=== PATIENT | male | born 1945 | race Caucasian/White ===

== ENCOUNTER → 2023-04-15 07:29 | Outpatient (REF) | payer MEDICARE, OTHER, SELFPAY ==
[2023-04-15 09:35] LABS: Blood Urea Nitrogen 17 mg/dl (9-20); Calcium 9.2 mg/dl (8.4-10.2); Carbon Dioxide 26 mmol/L (22-30); Chloride 105 mmol/L (98-107); Glucose 92 mg/dl (70-99); Potassium 4.3 mmol/L (3.5-5.1); Sodium 138 mmol/L (135-145); eGFR > 60.00
== END ==
LOC: REG 07:29
PROVIDERS: ATTENDING PHYSICIAN Thoracic Surgery (Cardiothoracic Vascular Surgery); FAMILY PHYSICIAN Family Medicine
DX: I71.21 Aneurysm of the ascending aorta, without rupture (principal)
CPT/HCPCS: 36415; 80048

== ENCOUNTER → 2023-05-03 08:32 | Outpatient (REF) | payer MEDICARE, OTHER, SELFPAY | LOC: HWRAD 08:32 | PROVIDERS: ATTENDING PHYSICIAN Thoracic Surgery (Cardiothoracic Vascular Surgery); FAMILY PHYSICIAN Family Medicine | DX: I71.21 Aneurysm of the ascending aorta, without rupture (principal) | CPT/HCPCS: 71275; 74174; Q9967 ==

== ENCOUNTER → 2023-08-17 11:39 | Outpatient (REF) | payer MEDICARE, OTHER, SELFPAY ==
[2023-08-17 14:46] LABS: Blood Urea Nitrogen 15 mg/dl (9-20); Calcium 9.5 mg/dl (8.4-10.2); Carbon Dioxide 27 mmol/L (22-30); Chloride 105 mmol/L (98-107); Glucose 91 mg/dl (70-99); Potassium 4.8 mmol/L (3.5-5.1); Sodium 140 mmol/L (135-145); eGFR > 60.00
[2023-08-17 15:14] LABS: PSA, Total - Diagnostic 2.59 ng/ml (0.0-4.0)
== END ==
LOC: REG 11:39
PROVIDERS: ATTENDING PHYSICIAN Thoracic Surgery (Cardiothoracic Vascular Surgery); FAMILY PHYSICIAN Family Medicine; REFERRING PHYSICIAN Specialist
DX: Z01.818 Encounter for other preprocedural examination (principal); I71.21 Aneurysm of the ascending aorta, without rupture; R97.20 Elevated prostate specific antigen [PSA]
CPT/HCPCS: 36415; 80048; 84153

== ENCOUNTER → 2023-09-27 08:28 | Outpatient (REF) | payer MEDICARE, OTHER, SELFPAY | LOC: RAD 08:28 | PROVIDERS: ATTENDING PHYSICIAN Thoracic Surgery (Cardiothoracic Vascular Surgery); FAMILY PHYSICIAN Family Medicine | DX: Z01.818 Encounter for other preprocedural examination (principal); I71.21 Aneurysm of the ascending aorta, without rupture | CPT/HCPCS: 71275; Q9967 ==

== ENCOUNTER 2024-05-14 04:00 | Emergency (ER) | payer MEDICARE, OTHER, SELFPAY ==
[2024-05-14] VITALS (14 sets, daily range): BP systolic 107–153; BP diastolic 62–82; PULSE 46–47; BMI 32.8
[2024-05-14 04:52] LABS: % Basophils 0.9 % (0-2); % Eosinophils 3.1 % (0-6); % Immature Granulocytes 0.5 % (0-0.5); % Lymphocytes 38.6 % (20.5-51.1); % Monocytes 10.3 % (1.7-9.3); % Neutrophils 46.6 % (42.2-75.2); Absolute Basophils 0.1 10^3/uL (0-0.2); Absolute Eosinophils 0.2 10^3/uL (0-0.7); Absolute Lymphocytes 2.5 10^3/uL (1.2-3.4); Absolute Monocytes 0.7 10^3/uL (0.1-0.6); Absolute Neutrophils 3.1 10^3/uL (1.4-6.5); Hematocrit 41.8 % (39.0-52.0); Hemoglobin 14.6 g/dL (13.0-18.0); Mean Corp Hgb Conc. 34.9 g/dL (33.0-37.0); Mean Corpuscular Hgb 31.2 pg (27.0-31.0); Mean Corpuscular Volume 89.3 fL (80.0-94.0); Mean Platelet Volume 12.3 fL (7.4-10.4); Nucleated Red Blood Cells % 0 % (-); Platelet Count 124 10^3/uL (130-400); Red Blood Cell Count 4.68 10^6/uL (4.70-6.10); Red Cell Dist. Width 13.4 % (11.5-14.5); White Blood Cell Count 6.5 10^3/uL (4.8-10.8)
[2024-05-14 05:11] LABS: ALT (SGPT) 48 U/L (0-50); AST (SGOT) 38 U/L (17-59); Albumin 4.5 g/dl (3.5-5.0); Alkaline Phosphatase 65 U/L (38-126); Blood Urea Nitrogen 14 mg/dl (9-20); Calcium 9.7 mg/dl (8.4-10.2); Carbon Dioxide 25 mmol/L (22-30); Chloride 105 mmol/L (98-107); Estimated Creatinine Clearance 81 ml/min; Glucose 95 mg/dl (70-99); Potassium 4.2 mmol/L (3.5-5.1); Sodium 139 mmol/L (135-145); Total Bilirubin 1.7 mg/dl (0.2-1.3); Total Protein 6.9 g/dl (6.3-8.2); eGFR > 60.00
[2024-05-14 08:07] LABS: Urine Albumin Negative (Neg - Trace); Urine Bilirubin Negative (Negative); Urine Character Clear (Clear); Urine Color Yellow; Urine Glucose Negative (Negative); Urine Ketone Negative (Negative); Urine Leukocyte Negative (Negative); Urine Nitrite Negative (Negative); Urine Occult Blood Negative (Negative); Urine Specific Gravity 1.005 (<1.030); Urine Urobilinogen Negative (Neg - 1+)
--- NOTE | 2024-05-14 09:46 | ED.GENMED ---
History of Present Illness
General
Chief Complaint: Fainting Sensation
Source: patient and spouse
Time Seen by Provider: 05/14/24 06:12
History of Present Illness
History of Present Illness:
79-year-old male with a history of a ascending aortic aneurysm, hyperlipidemia, BPH who presents with lightheadedness. Patient states he woke up several times to urinate last night which is a little bit atypical for him. Patient states that after
he woke up the second time start noticing he did feel quite normal. He states he felt lightheaded and almost like he was going to pass out. He in bed on my exam states he feels a little better but still just a little bit lightheaded. Admits that
he is on metoprolol twice a day. Patient states that he is followed by cardiothoracic surgery for his aneurysm. He has had no fevers. Has had no dysuria. No back pain. No abdominal pain. No chest pain. No shortness of breath
Past History
Past History
ED Past Medical History: Hypercholesterolemia and Other (Diverticulitis, ascending aortic aneurysm)
ED Past Surgical History: None
Social History
Tobacco: Non-smoker
Alcohol: None
Drug: None
Living: with family
Employment: Employed
Phy Exam
Physical Exam
Physical Exam:
CONSTITUTIONAL Patient alert and oriented to person, place and time. Well-appearing. Vital signs reviewed.
HEAD atraumatic, normocephalic.
EYES eyelids normal to inspection, Extraocular muscles intact, Conjunctiva normal, Sclera normal.
NECK normal range of motion, Trachea midline, no jugular venous distention.
RESPIRATORY CHEST No respiratory distress noted, Chest expansion equal, Bilateral breath sounds clear.
CARDIOVASCULAR regular and bradycardic, Heart sounds normal.
ABDOMEN abdomen nontender, Bowel sounds normal. No distention.
BACK normal inspection, no obvious deformities
UPPER EXTREMITY range of motion normal, Motor strength normal, no cyanosis, no edema.
LOWER EXTREMITY range of motion normal, Motor strength normal, no cyanosis, no edema.
NEURO Speech normal, No focal motor deficits, Wendy coma scale 15, Memory normal, Cranial Nerves intact to screening exam.
SKIN skin warm, dry, and normal in color.
Course
Orders/Labs/Results
Orders:
Orders
05/14/24 04:09
ECG [Electrocardiogram (*1)] Urgent
Reason for Study: Other
Other Reason for Exam: FAINTING SENSATION
05/14/24 04:10
EKG- Treatment ONCE
05/14/24 04:44
Complete Blood Count/With Diff Urgent
05/14/24 04:45
CMP [Comprehensive Metabolic Panel] Urgent
05/14/24 07:32
Orthostatic VS- Treatment ONCE
05/14/24 07:59
Urinalysis Reflex To Culture Urgent
Date Specimen was Collected: 05/14/24
Time Specimen was Collected: 07:57
05/14/24 08:07
CT Chest Angio W/wo Iv Contras Urgent
Comment:
Reason For Exam: cp, h/o aneurysm
05/14/24 10:22
Troponin I Urgent
Abnormal Lab Results
05/14/24 05/14/24
04:44 04:45
RBC 4.68 L 10^6/uL
(4.70-6.10)
MCH 31.2 H pg
(27.0-31.0)
Plt Count 124 L 10^3/uL
(130-400)
MPV 12.3 H fL
(7.4-10.4)
Absolute Monos (auto) 0.7 H 10^3/uL
(0.1-0.6)
Monocytes % 10.3 H %
(1.7-9.3)
Total Bilirubin 1.7 H mg/dl
(0.2-1.3)
05/14/24 04:44
05/14/24 04:45
Vital Signs
Initial and Last Documented VS:
Initial Vital Signs
Temp Pulse Resp BP Pulse Ox
97.8 F 50 22 112/82 98
05/14/24 04:05 05/14/24 04:05 05/14/24 04:05 05/14/24 04:05 05/14/24 04:05
Last Documented Vital Signs
Temp Pulse Resp BP Pulse Ox
97.8 F 43 17 121/65 92
05/14/24 04:05 05/14/24 07:00 05/14/24 07:00 05/14/24 07:00 05/14/24 07:00
MDM/Problems Addressed
MDM/Problems Addressed:
Sinus bradycardia, beta-chelsea use, stable ascending aortic aneurysm
*Pulse Oximetry
Patient hypoxic: no
*EKG
Interpreted by ED Provider?: Yes
Interpretation: abnormal
Rate: bradycardiac
Rhythm: sinus
[place]: left axis deviation
QRS Pattern: right bundle branch block
Ischemia: other (Bifascicular block with left anterior fascicular back and right bundle branch block noted.)
*Enameler Interpretation
Rate: bradycardiac
Interpretation: abnormal
Rhythm: sinus
*Critical Care Note
Total Time (30-74mins, 75-104mins- exclusive of procedures): 30 minutes
Data Reviewed
Review of Other/Old Records Reveals: Testing (echo reviewed from 03/23, EF 54%) and Other (prior EKG from 2016 shows same bifasicular block)
Source: patient and spouse
Patient Management
Escalation/DeEscalation of care consider admission/obs:
Considered admission to the hospital due to bradycardia. However case was discussed with Dr. Barone from cardiology. He recommends decreasing the dose of metoprolol to 25 mg. I do think this is reasonable. Patient had no chest pain but await
troponin. Anticipate discharge
ED Attending Note
-
Portions of this chart may have been created with voice recognition software.� Occasional wrong word or��sound alike� substitutions may have occurred due to the inherent limitations of voice recognition software.
Discharge Plan
Departure
Patient Disposition: Home (Routine Discharge)
Date of Disposition: 05/14/24
Time of Disposition: 11:27
Patient with high blood pressure during this ER visit?: No
Discharge Problem:
Near syncope, Symptomatic bradycardia
Instructions: Near Fainting (DC)
Prescriptions:
No Action
multivitamin 1 EACH tablet
1 ea PO DAILY
valacyclovir [Valtrex] 1,000 MG tablet
1,000 mg PO TID Qty: 29 0RF
prednisone 50 MG tablet
100 mg PO DAILY Qty: 8 0RF
Rx Instructions:
100mg PO daily x 4 days
metoprolol tartrate
50 mg PO BID
Referrals:
Chaitanya Brito MD [Family Provider] -
Activity Restrictions/Additional Instructions:
Please decrease your dose of metoprolol to 25 mg. Please see cardiology in the next 3 to 5 days for reassessment and repeat vital signs. Return immediately for chest pain, shortness of breath, weakness, passing out episode or any other concerns.
Please drink plenty fluids and also be sure to take your time while changing positions from laying or sitting to standing.
Interventions
Interventions:
*Risk Screen - Suicide Last Done: 05/14/24 04:05
*General Assessment Last Done: 05/14/24 04:31
*Neglect/Abuse Screening Last Done: 05/14/24 04:05
*ED- Fall Risk Assessment Last Done: 05/14/24 04:30
*ED COVID-19 Vaccine History Last Done: 05/14/24 06:06
IK-Kafzus-Mtfeqlbput Assessment Last Done: 05/14/24 04:33
ED- Cardiac Assessment Last Done: 05/14/24 04:26
ED- Neurological Assessment Last Done: 05/14/24 04:27
Discharge Date and Time
Print Language: MOHAWK
[2024-05-14 11:15] LABS: Troponin I < 0.012 ng/ml
== END 2024-05-14 11:30 | disposition home or self-care (01) ==
LOC: EMR 04:00
PROVIDERS: Emergency Medicine; EMERGENCY PHYSICIAN Emergency Medicine; FAMILY PHYSICIAN Family Medicine
DX: R55 Syncope and collapse (principal); R00.1 Bradycardia, unspecified; R35.0 Frequency of micturition; I45.2 Bifascicular block; I71.21 Aneurysm of the ascending aorta, without rupture; K57.92 Diverticulitis of intestine, part unspecified, without perforation or abscess without bleeding; E78.00 Pure hypercholesterolemia, unspecified; N40.0 Benign prostatic hyperplasia without lower urinary tract symptoms; Z79.899 Other long term (current) drug therapy
CPT/HCPCS: 99291; 71275; 80053; 81003; 84484; 85025; 93005; Q9967

== ENCOUNTER → 2024-06-06 11:06 | Outpatient (REF) | payer MEDICARE, OTHER, SELFPAY | LOC: HWRCS 11:06 | PROVIDERS: ATTENDING PHYSICIAN Physician Assistant; FAMILY PHYSICIAN Family Medicine | DX: I71.9 Aortic aneurysm of unspecified site, without rupture (principal); R06.02 Shortness of breath; I35.1 Nonrheumatic aortic (valve) insufficiency | CPT/HCPCS: 93306 ==

== ENCOUNTER 2024-06-07 06:24 | Day surgery (SDC) | payer MEDICARE, OTHER, SELFPAY | END 2024-06-07 12:09 | disposition home or self-care (01) | LOC: GI 06:24 | PROVIDERS: ATTENDING PHYSICIAN Internal Medicine Gastroenterology | DX: K22.2 Esophageal obstruction (principal); K44.9 Diaphragmatic hernia without obstruction or gangrene; R13.10 Dysphagia, unspecified | CPT/HCPCS: 43249 ==

== ENCOUNTER → 2024-07-26 08:15 | Outpatient (REF) | payer MEDICARE, OTHER, SELFPAY | LOC: RCS 08:15 | PROVIDERS: ATTENDING PHYSICIAN Internal Medicine Cardiovascular Disease; FAMILY PHYSICIAN Family Medicine | DX: R06.02 Shortness of breath (principal) | CPT/HCPCS: 78452; 93017; A9500 ==

== ENCOUNTER → 2024-08-02 09:53 | Outpatient (REF) | payer MEDICARE, OTHER, SELFPAY ==
[2024-08-02 12:14] LABS: PSA, Total - Diagnostic 2.82 ng/ml (0.0-4.0)
== END ==
LOC: REG 09:53
PROVIDERS: ATTENDING PHYSICIAN Specialist; FAMILY PHYSICIAN Family Medicine
DX: R97.20 Elevated prostate specific antigen [PSA] (principal)
CPT/HCPCS: 36415; 84153

== ENCOUNTER → 2024-09-08 07:55 | Outpatient (REF) | payer MEDICARE, OTHER, SELFPAY ==
[2024-09-08 10:00] LABS: Blood Urea Nitrogen 19 mg/dl (9-20); Calcium 9.5 mg/dl (8.4-10.2); Carbon Dioxide 25 mmol/L (22-30); Chloride 109 mmol/L (98-107); Glucose 100 mg/dl (70-99); Potassium 5.4 mmol/L (3.5-5.1); Sodium 139 mmol/L (135-145); eGFR > 60.00
== END ==
LOC: REG 07:55
PROVIDERS: ATTENDING PHYSICIAN Thoracic Surgery (Cardiothoracic Vascular Surgery); FAMILY PHYSICIAN Family Medicine
DX: I71.21 Aneurysm of the ascending aorta, without rupture (principal); Z01.818 Encounter for other preprocedural examination
CPT/HCPCS: 36415; 80048

== ENCOUNTER → 2024-10-02 07:33 | Outpatient (REF) | payer MEDICARE, OTHER, SELFPAY | LOC: RAD 07:33 | PROVIDERS: ATTENDING PHYSICIAN Thoracic Surgery (Cardiothoracic Vascular Surgery); FAMILY PHYSICIAN Family Medicine | DX: I71.21 Aneurysm of the ascending aorta, without rupture (principal) | CPT/HCPCS: 71275; Q9967 ==

== ENCOUNTER 2025-01-15 14:11 | Observation (INO) | payer MEDICARE, OTHER, SELFPAY ==
[2025-01-15] VITALS (15 sets, daily range): BP systolic 95–161; BP diastolic 53–89; BMI 31.1; BMI 31.8
--- NOTE | 2025-01-15 07:55 | ED.GENMED ---
History of Present Illness
<Paulo Vega MD, Resident - Last Filed: 01/15/25 10:13>
General
Chief Complaint: Abdominal Pain
Source: patient
Exam Limitations: none
Time Seen by Provider: 01/15/25 07:38
Nursing documentation reviewed up to this point in time: agreed with
History of Present Illness
History of Present Illness:
Patient is a 80-year-old male, with past medical history of ascending aortic aneurysm, BPH, hyperlipidemia, diverticulosis, hiatal hernia presented to the ED through EMS services with complaint of abdominal discomfort. He stated that his symptoms
started around 3 AM this morning. He felt severe pain in his lower abdomen and had to palma to the bathroom immediately. He had a large bowel movement followed by diarrhea and was able to sleep after that. He woke up 2 hours later feeling sick to
his stomach, he tried to get up and get some juice but he felt lightheaded, nauseous and near syncope.
He called EMS services immediately and was brought to the ER. In the ER he was hypotensive, and had generalized abdominal tenderness with abdominal guarding. He was moaning in pain.
He was started on IV fluids and was immediately sent for CT chest abdomen and pelvis. Blood work was ordered.
As per last CT chest, his ascending aortic aneurysm was 4.7 cm in size in September 2024.Increased to 4.9cm this admission.No signs of dissection/rupture
No signa of Bowel perforation on CT chest/abdomen/pelvis
Past History
<Paulo Vega MD, Resident - Last Filed: 01/15/25 10:13>
Past History
ED Past Medical History: Hypercholesterolemia and Other (Diverticulitis, ascending aortic aneurysm)
ED Past Surgical History: None
Social History
Tobacco: Non-smoker
Alcohol: None
Drug: None
Living: with family
Employment: Employed
Review of Systems
<Paulo Vega MD, Resident - Last Filed: 01/15/25 10:13>
Review of Systems
Constitutional: Reports chills
Respiratory: Reports no symptoms
ABD/GI: Reports abdominal pain and nausea
: Reports no symptoms
Musculoskeletal: Reports no symptoms
Skin: Reports no symptoms
Neurological: Reports weakness
Endocrine: Reports no symptoms
Psychiatric: Reports no symptoms
Phy Exam
<Paulo Vega MD, Resident - Last Filed: 01/15/25 10:13>
Physical Exam
Physical Exam:
On general physical examination patient appears very sick and in visible distress due to abdominal pain
Abdomen-generalized abdominal tenderness, guarding, bowel sounds audible
Lungs-bilaterally clear to auscultation
CVS-S1-S2 normal, no murmurs
Peripheral pulses 2+
No pedal edema
Gastrointestinal Exam
Gastrointestinal Exam: normal bowel sounds, guarding and tender (Generalized tenderness)
Course
<Paulo Vega MD, Resident - Last Filed: 01/15/25 10:13>
Orders/Labs/Results
Orders:
Orders
01/15/25 07:37
EKG [Electrocardiogram (*1)] Urgent
Reason for Study: Abdominal Pain
01/15/25 07:38
EKG- Treatment ONCE
01/15/25 07:49
Cardiac Monitoring- Treatment ONCE
IV Insert/Care/Rem.- Treatment PRN
IV Insert/Care/Rem.- Treatment PRN
0.9% Sodium Chloride 250 ml [Nss] 250 ml IV BOLUS
Pulse Ox/cont/shift [RESP] Stat
Quantity: 1
01/15/25 07:54
Complete Blood Count/With Diff Urgent
Comprehensive Metabolic Panel Urgent
Lipase Urgent
Troponin I Urgent
01/15/25 08:03
CT Chest/abd/pelvis Angio W/wo Stat
Comment:
Reason For Exam: Severe sudden abdominal pain. Known aneurysm
01/15/25 08:05
HYDROmorphone [Dilaudid] 0.5 mg IV NOW ONE
01/15/25 08:06
Ondansetron Injectable [Zofran] 4 mg IV NOW ONE
01/15/25 09:04
Urinalysis Reflex To Culture Urgent
Date Specimen was Collected: 01/15/25
Time Specimen was Collected: 09:03
Urine Culture Reflexed from UA [Urinalysis Reflex To Culture] Stat
Date Specimen was Collected: 01/15/25
Time Specimen was Collected: 09:03
Urine Microscopic Reflex Cult Urgent
Blood Culture Stat
PENNY Source: Blood/Venous
Specimen Description:
01/15/25 09:19
Type+Screen Urgent
BBK Wristband Number:
Abnormal Lab Results
01/15/25 01/15/25
07:54 09:04
WBC 12.5 H 10^3/uL
(4.8-10.8)
MCV 94.5 H fL
(80.0-94.0)
MCH 31.5 H pg
(27.0-31.0)
MPV 12.2 H fL
(7.4-10.4)
Abs Immat Gran (auto) 0.1 H 10^3/uL
(0-0.05)
Absolute Neuts (auto) 11.6 H 10^3/uL
(1.4-6.5)
Absolute Lymphs (auto) 0.5 L 10^3/uL
(1.2-3.4)
Neutrophils % 92.6 H %
(42.2-75.2)
Lymphocytes % 3.9 L %
(20.5-51.1)
BUN 27 H mg/dl
(9-20)
Glucose 133 H mg/dl
(70-99)
Total Bilirubin 2.3 H mg/dl
(0.2-1.3)
Urine Albumin (Reflex) 2+ A
(Neg - Trace)
01/15/25 07:54
01/15/25 07:54
Vital Signs
Initial and Last Documented VS:
Initial Vital Signs
BP
99/59
01/15/25 07:38
Last Documented Vital Signs
Temp Pulse Resp BP Pulse Ox
97.0 F 88 23 97/57 97
01/15/25 07:48 01/15/25 08:33 01/15/25 07:40 01/15/25 07:40 01/15/25 08:06
<Denny Adams MD - Last Filed: 01/15/25 10:07>
Orders/Labs/Results
Orders:
Orders
01/15/25 07:37
EKG [Electrocardiogram (*1)] Urgent
Reason for Study: Abdominal Pain
01/15/25 07:38
EKG- Treatment ONCE
01/15/25 07:49
Cardiac Monitoring- Treatment ONCE
IV Insert/Care/Rem.- Treatment PRN
IV Insert/Care/Rem.- Treatment PRN
0.9% Sodium Chloride 250 ml [Nss] 250 ml IV BOLUS
Pulse Ox/cont/shift [RESP] Stat
Quantity: 1
01/15/25 07:54
Complete Blood Count/With Diff Urgent
Comprehensive Metabolic Panel Urgent
Lipase Urgent
Troponin I Urgent
01/15/25 08:03
CT Chest/abd/pelvis Angio W/wo Stat
Comment:
Reason For Exam: Severe sudden abdominal pain. Known aneurysm
01/15/25 08:05
HYDROmorphone [Dilaudid] 0.5 mg IV NOW ONE
01/15/25 08:06
Ondansetron Injectable [Zofran] 4 mg IV NOW ONE
01/15/25 09:04
Urinalysis Reflex To Culture Urgent
Date Specimen was Collected: 01/15/25
Time Specimen was Collected: 09:03
Urine Culture Reflexed from UA [Urinalysis Reflex To Culture] Stat
Date Specimen was Collected: 01/15/25
Time Specimen was Collected: 09:03
Urine Microscopic Reflex Cult Urgent
Blood Culture Stat
PENNY Source: Blood/Venous
Specimen Description:
01/15/25 09:19
Type+Screen Urgent
BBK Wristband Number:
Abnormal Lab Results
01/15/25 01/15/25
07:54 09:04
WBC 12.5 H 10^3/uL
(4.8-10.8)
MCV 94.5 H fL
(80.0-94.0)
MCH 31.5 H pg
(27.0-31.0)
MPV 12.2 H fL
(7.4-10.4)
Abs Immat Gran (auto) 0.1 H 10^3/uL
(0-0.05)
Absolute Neuts (auto) 11.6 H 10^3/uL
(1.4-6.5)
Absolute Lymphs (auto) 0.5 L 10^3/uL
(1.2-3.4)
Neutrophils % 92.6 H %
(42.2-75.2)
Lymphocytes % 3.9 L %
(20.5-51.1)
BUN 27 H mg/dl
(9-20)
Glucose 133 H mg/dl
(70-99)
Total Bilirubin 2.3 H mg/dl
(0.2-1.3)
Urine Albumin (Reflex) 2+ A
(Neg - Trace)
01/15/25 07:54
01/15/25 07:54
Vital Signs
Initial and Last Documented VS:
Initial Vital Signs
BP
99/59
01/15/25 07:38
Last Documented Vital Signs
Temp Pulse Resp BP Pulse Ox
97.0 F 88 23 97/57 97
01/15/25 07:48 01/15/25 08:33 01/15/25 07:40 01/15/25 07:40 01/15/25 08:06
<Paulo Vega MD, Resident - Last Filed: 01/15/25 10:13>
MDM/Problems Addressed
Differential Diagnosis Includes:
Bowel perforation
Acute diverticulitis
Expanding ascending aortic aneurysm
Constipation
GERD
Acute pancreatitis
Acute cholecystitis
MDM/Problems Addressed:
Patient very toxic appearing,presented with chills, abdominal tenderness and guarding
Cardiac testing benign
CT Chest/abdomen/Pelvis-No acute intra-abdominal findings
CMP-Mild leukocytosis,isolated hyperbilirubinemia
Blood cultures and urine cultures pending
Still suggest inpatient admission for observation due to his toxic appearance and acute onset of symptoms
<Paulo Vega MD, Resident - Last Filed: 01/15/25 10:13>
*Pulse Oximetry
SaO2: 97
Oxygen Mode of Delivery: Room air
Patient hypoxic: no
*Critical Care Note
Total Time (30-74mins, 75-104mins- exclusive of procedures): Not Applicable
ED Attending Note
<Paulo Vega MD, Resident - Last Filed: 01/15/25 10:13>
-
Portions of this chart may have been created with voice recognition software.� Occasional wrong word or��sound alike� substitutions may have occurred due to the inherent limitations of voice recognition software.
<Denny Adams MD - Last Filed: 01/15/25 10:07>
ED Attending Note
Patient seen and examined by attending physician: Yes
I performed a history and physical exam of patient and discussed management with resident, I reviewed resident's note and agree with documented findings and plan of care.: Yes
ED Attending Note:
Patient with progressive abdominal symptoms lightheaded near syncope severe pain since 3 AM. History of ascending aortic aneurysm. No chest pain or shortness of breath. Patient sent immediately to CT for concerns of an acute abdomen. Last
BUN/creatinine were normal.
Patient with relatively sudden onset abdominal pain nausea vomiting. Started in the middle of the night. Near syncopal episode at home. No diarrhea no bloody stool no chest pain or shortness of breath. No fever.
On arrival patient was mildly hypertensive. Moaning in pain. Very uncomfortable. Warm and dry and perfusing well. Lungs clear and equal. Heart regular rate and rhythm. Abdomen mildly distended. Diffuse tenderness. Most tenderness left upper
quadrant and left lower quadrant. However some diffuse tenderness.
Impression is relatively sudden onset of abdominal pain mostly left upper and left lower quadrant. Patient has a known ascending aortic aneurysm which is unlikely part of this issue. Would be most concerned with diverticulitis, [place] diverticuli
per bowel. Bowel obstruction.
Mild leukocytosis. All other labs are stable. Cardiac testing is stable and this is not a cardiac issue. However given patient's discomfort level hypotension patient warrants inpatient management and observation.
Discharge Plan
Departure
Patient Disposition: Admit
Date of Disposition: 01/15/25
Time of Disposition: 10:02
Presentation/result/management discussed w/ accepting MD/DO: Hospitalist
Condition: Fair
Discharge Problem:
Acute abdominal pain
Instructions: Diverticulitis (DC), Abdominal Pain
Prescriptions:
No Action
calcium carbonate [Tums] 200 mg calcium (500 mg) Tablet,Chewable
400 mg PO HS
vitamin B complex [B Complete] Tablet
1 tab PO DAILY
vitamin E 268 mg (400 unit) Capsule
268 mg PO DAILY
dutasteride 0.5 mg Capsule
0.5 mg PO DAILY
rosuvastatin [Crestor] 10 mg Tablet
10 mg PO DAILY
Visbiome 112.5 billion cell Capsule
1 cap PO DAILY
Metamucil Packet
1 packet PO DAILY
Referrals:
Chaitanya Brito MD [Family Provider, Family Practice]
Interventions
Interventions:
AY-Izuaoy-Uciydljaez Assessment Last Done: 01/15/25 08:36
Discharge Date and Time
Print Language: TAJIK
[2025-01-15 08:20] LABS: ALT (SGPT) 42 U/L (0-50); AST (SGOT) 33 U/L (17-59); Albumin 4.7 g/dl (3.5-5.0); Alkaline Phosphatase 54 U/L (38-126); Blood Urea Nitrogen 27 mg/dl (9-20); Calcium 9.2 mg/dl (8.4-10.2); Carbon Dioxide 26 mmol/L (22-30); Chloride 103 mmol/L (98-107); Estimated Creatinine Clearance 66 ml/min; Glucose 133 mg/dl (70-99); Lipase 167 U/L (23-300); Potassium 4.9 mmol/L (3.5-5.1); Sodium 135 mmol/L (135-145); Total Protein 7.2 g/dl (6.3-8.2); eGFR > 60.00
[2025-01-15] MEDS: NSS 250 IV (08:28)
[2025-01-15] MEDS: ZOFRAN 4 MG IV (08:28)
[2025-01-15] MEDS: DILAUDID 0.5 MG IV ×2 (08:28→18:20)
[2025-01-15 08:32] LABS: Troponin I 0.016 ng/ml
[2025-01-15 08:39] LABS: Hematocrit 46.2 % (39.0-52.0); Hemoglobin 15.4 g/dL (13.0-18.0); Mean Corp Hgb Conc. 33.3 g/dL (33.0-37.0); Mean Corpuscular Volume 94.5 fL (80.0-94.0); Nucleated Red Blood Cells % 0 % (-); Platelet Count 148 10^3/uL (130-400); Red Cell Dist. Width 13.2 % (11.5-14.5)
[2025-01-15 09:49] LABS: Urine Character Clear (Clear)
[2025-01-15 10:19] LABS: Urine Squamous Cell 0-2 /LPF (Few)
[2025-01-15 10:20] LABS: Urine Red Blood Cell 0-2 /HPF (0-2)
--- NOTE | 2025-01-15 12:54 | HPS.HSE ---
Family Physician
-
Family Physician: Chaitanya Brito
Chief Complaint
-
abd pain
History of Present Illness
80 y/o M, hx of ascending aortic aneurysm, BPH, hyperlipidemia, diverticulosis, hiatal hernia presented to ER via EMS with abd discomfort. Patients reports feeling ok yesterday but this morning around 3 AM woke up with Left sided abdominal pain.
Reports severe pain, sharp, nonradiating pain. He immediately went and had a large bowel movement followed by looser stools. Two hours later, he felt 'sick to his stomach'. He went to the kitchen to try to drink some water or juice, but felt
lightheadedness with nausea and near syncope. EMS was called. He was hypotensive in ER and moaning in pain. received IV meds and IV fluids. CT imaging was negative.
Medical History
Past Medical History
Past Medical History: Reports Other (hx of ascending aortic aneurysm, BPH, hyperlipidemia, diverticulosis, hiatal hernia)
Past Surgical History: Reports None
Social History
Tobacco: Non-smoker
Alcohol: None
Drug: None
Living: With Family
Employment: Employed
Family History
Family History: Not pertinent
Allergies / Home Medications
Allergies reflects when Allergies were last updated in [employer].
Home Medications with original date entered in [employer]
Allergy/Medication List:
Allergies
Allergy/AdvReac Type Severity Reaction Status Date / Time
NKA - No Known Allergies Allergy Unknown Uncoded 05/14/24 04:09
Home Medications
Lactobac no.2-Bifidobac no.1-S. thermo 112.5 billion cell capsule (Visbiome) 1 cap PO DAILY Supplement 01/15/25
calcium carbonate (Tums) 400 mg PO HS Gastrointestinal Issue 01/15/25
dutasteride 0.5 mg capsule 0.5 mg PO DAILY Urinary Issue 01/15/25
psyllium 1 packet PO DAILY Gastrointestinal Issue 01/15/25
rosuvastatin 10 mg tablet (Crestor) 10 mg PO DAILY High Cholesterol 01/15/25
vitamin B complex 1 tab PO DAILY Supplement 01/15/25
vitamin E 268 mg (400 unit) capsule 268 mg PO DAILY Supplement 01/15/25
Review of Systems
-
A 12 point ROS was completed and negative except as noted: Yes
Physical Exam
Vital Signs
Vital Signs
Temp Pulse Resp BP Pulse Ox
97.0 F 90 20 116/71 93
01/15/25 07:48 01/15/25 12:00 01/15/25 12:00 01/15/25 12:00 01/15/25 12:00
Physical Exam
General: No Apparent Distress
HEENT: NormoCephalic and Anicteric
Respiratory: Clear; No Wheezes
Cardiac: S1/S2 and Regular Rhythm
GI: Other (LUQ pain with palpation, no rigidity)
Musculoskeletal: No Clubbing
Neuro: AO x 3
Psych: Calm
Laboratory Results
-
01/15/25 07:54
01/15/25 07:54
Laboratory Results
Total Bilirubin 2.3 mg/dl (0.2-1.3) H 01/15/25 07:54
AST 33 U/L (17-59) 01/15/25 07:54
ALT 42 U/L (0-50) 01/15/25 07:54
Alkaline Phosphatase 54 U/L (38-126) 01/15/25 07:54
Troponin I 0.016 ng/ml 01/15/25 07:54
Lipase 167 U/L (23-300) 01/15/25 07:54
Data Reviewed
-
CT Scan: Report Reviewed by me
Lab Data: Labs Reviewed by me
Impression/Plan
-
Assessment:
Left upper quadrant, acute on chronic abd pain
- patient reports chronic abd pain, worsened last evening
- s/p BM and some loose stool; no blood
- labs unremarkable
- CT without acute pathology
- GI consulted; consider Scope evaluation(s)
- prior EGD 2019: small HH, chronic gastritis, mild Schatzki ring
- prior Colonoscopy 2019: Diverticulosis in the sigmoid colon, in the descending colon, in the transverse colon and in the ascending colon.
- for now, trial clears as symptomatic improved, and prn pain control-antiemetics
Presyncope/lightheadedness
chronic SOB with exertion at home
- monitor on tele
- repeat 2nd trop
- not on BP meds; check orthostatics
- prior stress test 06/2024 with small, mild, fixed apical perfusion defect, normal systolic function. EF 65%
- check Echo - prior Echo 06/06 with normal EF, aortic sclerosis
ascending (thoracic) aortic aneurysm
- stable on CT comparison from prior
- OP surveillance with cardiothoracic surgery office
BPH
- continue Dutasteride
Hx of hiatal hernia
DVT ppx: Lovenox
Code: Full
--- NOTE | 2025-01-15 13:05 | CM ---
Chart reviewed and spoke with patient , Elin, son Matheus and dtr Alejandro at ED bedside
Lives in 2 story home with . PLOF independent drives
Used to cut his own trees in his yard till last year
DME CPAP
Very supportive family
PCP Dr. Chaitanya Brito
RX plan yes
Pharmacy [facility]
no hx of VN nor SNF
DCP is to go home when ready
Family can provide transportation
CM will continue to follow up for any dcp needs
--- NOTE | 2025-01-15 14:53 | CON.GI ---
Addendum entered and electronically signed by Leslie Palafox MD 01/15/25 17:18:
I saw and examined the patient.
The CAR PACKER or PA's note was reviewed and I agree with the note.
Comment: 80-year-old male with history of high cholesterol, ascending aortic aneurysm which is being monitored, history of GERD/Ramsey's esophagus presenting with complaints of lower abdominal discomfort that woke him up from sleep around 4 AM, he
had a large bowel movement following that and his pain did feel better but around 6 AM, he felt dizzy and passed out, he did have loose stool as well. Last night, he did have dinner at his hktwpwwu-gw-ays's house and nobody else got sick.
Currently the lower abdominal pain completely resolved but he does report discomfort in the left upper quadrant which seems to have been chronic for several years. He also reports some rib cage pain. Some nausea but no vomiting during the episode.
No heartburn, he takes omeprazole sporadically, history of intestinal metaplasia/Ramsey's esophagus, had an upper endoscopy with dilation of the Schatzki's ring earlier this year for dysphagia and symptoms resolved. Normal bowel movement pattern
is 1 formed stool a day without any pushing or straining, usually good evacuation. No blood in the stool or black stool. No regular NSAID use.
In the emergency room, CBC showed mild leukocytosis, CMP showed total bilirubin of 2.3 with a direct of 0.3, other LFTs in normal range, lipase in normal range. Previous history of elevated total bilirubin as well since 2012.
CT angiogram done today showed aneurysm of ascending thoracic aorta about 4.9 cm without any significant change from previous study, moderate prostate enlargement but no evidence of PE and otherwise normal study.
- Lower abdominal pain which resolved after bowel movements and now left upper quadrant discomfort which she has had in the past as well
Cannot rule out foodborne gastroenteritis, otherwise CT without any evidence of diverticulitis/colitis. Gallbladder and pancreas unremarkable.
Left upper quadrant pain which is chronic, cannot rule out musculoskeletal etiology given chronic intermittent nature.
Upper endoscopy in 2024 with Schatzki's ring, colonoscopy was in 2019. No urgent indication for endoscopy evaluation.
If any further episodes of diarrhea, will check stool studies at that time but otherwise would monitor.
Okay for low residue diet for now.
-Elevated total bilirubin, majority of it is indirect, likely related to Gilbert's
Will monitor
Original Note:
Consultation
-
Date/Time Consultation Requested: 01/15/25 1430
Date/Time Consultation Performed: 01/15/25 1455
Requesting Provider: Franklin Benjamin MD
Performing Provider: GARY Rivera, Jeyson Chakraborty DO
Reason for Consultation: abdominal pain
Medical History
Chief Complaint / HPI
History of Present Illness:
Pt is an 80yo with hx ascending aortic aneurysm, BPH, hyperlipidemia, diverticulosis, HH, GERD, colon polyps, schatzki's ring, dysphagia, ramsey's esophagus, right BBB, BPH, HTN, hyperlipidemia, mild to moderate AI with chronic intermittent left
sided pain. He admits to similar pain with follow with Dr. Peñaloza in past but now began with onset of left sided pain worse than in past. Pain was dull but 7-8/10. He admits to waking up with not feeling well. He then was noted prior to
admission with syncope BP 98/58 with EMS with diaphoresis and diarrhea prior to admission. On admission CTA completed with hx aneurysm with no change. He admits pain is worse with bending and fasting and improved with eating. he denies any GI
complaints with odynophagia, dysphagia, GERD, nausea, vomiting, constipation blood or black in stools. He denies any recent travel, abx, or sick contacts. No NSAID or anticoagulation use. Labs on admission noted with WBC 12,500, BUN 27, creat,
1.1, bili 2.3, AST 33, ALT 42, alk phos 54.
05/2024- EGD [facility] - Moderate Schatzki ring. Dilated to 18 mm - Small hiatal hernia. - Normal examined duodenum. - No specimens collected.
04/2019- colonoscopy - diverticulosis
01/15/25 CT Chest/abd/pelvis Angio W/wo
1. Aneurysm of the ascending thoracic aorta, measured at 4.9 cm in greatest orthogonal dimension on the current study. No significant change compared to most recent prior study, nor to prior study dated 01/29/2023.
2. No evidence of aortic dissection or central pulmonary embolism. No significant coronary arterial calcification.
3. Moderate prostatic enlargement.
Past Medical History
Past Medical History: Arrhythmias (right BBB), GERD, HTN, Hypercholesterolemia, Valvular Disease (mild to moderate AI) and Other (ascending aortic aneurysm, BPH, diverticulosis, HH, ramsey's esophagus, back pain, diverticulitis, dysphagia,
schatzki's ring, colon polyps,hear loss)
Past Surgical History: Orthopedic (knee injections) and Other (cataracts )
Social History
Tobacco: Former Smoker
Alcohol: None
Drug: None
Personal:
Living: With Family
Employment: Retired
Family History
Family History: Other (grandson with constipation issues, no family hx colon Ca or polyps)
Allergies / Home Medications
Allergy/AdvReac Type Severity Reaction Status Date / Time
NKA - No Known Allergies Allergy Unknown Uncoded 05/14/24 04:09
�Medication �Instructions �Recorded
Lactobac no.2-Bifidobac no.1-S. 1 cap PO DAILY Supplement 01/15/25
thermo 112.5 billion cell capsule
(Visbiome)
calcium carbonate (Tums) 400 mg PO HS Gastrointestinal Issue 01/15/25
dutasteride 0.5 mg capsule 0.5 mg PO DAILY Urinary Issue 01/15/25
psyllium 1 packet PO DAILY Gastrointestinal 01/15/25
Issue
rosuvastatin 10 mg tablet (Crestor) 10 mg PO DAILY High Cholesterol 01/15/25
vitamin B complex 1 tab PO DAILY Supplement 01/15/25
vitamin E 268 mg (400 unit) capsule 268 mg PO DAILY Supplement 01/15/25
Review of Systems
-
History Source: Patient
Constitutional: Reports Other (diaphorsis prior to admission )
Respiratory: Reports Trouble Breathing
Cardiac: Reports Diaphoresis
Abdomen/GI: Reports Abdominal Pain (LUQ) and Diarrhea
: Reports No Symptoms
Musculoskeletal: Reports Other (back pain )
Skin: Reports No Symptoms
Neurological: Reports Weakness
Endocrine: Reports No Symptoms
Hematologic/Lymphatic: Reports No Symptoms
Vital Signs
Temp Pulse Resp BP Pulse Ox
97.0 F 87 24 110/65 91
01/15/25 07:48 01/15/25 14:30 01/15/25 14:30 01/15/25 14:00 01/15/25 14:30
Physical Exam
Exam
General: Well Developed, Well Nourished and No Apparent Distress
Respiratory: Clear
Cardiac: Regular Rhythm
GI: Soft, Non Distended and Tender (LUQ )
Musculoskeletal: No Clubbing and No Cyanosis
Skin: Warm and Dry
Neuro: Awake, Alert and AO x 3
Psych: Calm
Results
WBC 12.5 10^3/uL (4.8-10.8) H 01/15/25 07:54
Hgb 15.4 g/dL (13.0-18.0) 01/15/25 07:54
Hct 46.2 % (39.0-52.0) 01/15/25 07:54
MCV 94.5 fL (80.0-94.0) H 01/15/25 07:54
Plt Count 148 10^3/uL (130-400) 01/15/25 07:54
Absolute Neuts (auto) 11.6 10^3/uL (1.4-6.5) H 01/15/25 07:54
Sodium 135 mmol/L (135-145) 01/15/25 07:54
Potassium 4.9 mmol/L (3.5-5.1) 01/15/25 07:54
Chloride 103 mmol/L (98-107) 01/15/25 07:54
Carbon Dioxide 26 mmol/L (22-30) 01/15/25 07:54
BUN 27 mg/dl (9-20) H 01/15/25 07:54
Creatinine 1.1 mg/dL (0.7-1.3) 01/15/25 07:54
Calcium 9.2 mg/dl (8.4-10.2) 01/15/25 07:54
Total Bilirubin 2.3 mg/dl (0.2-1.3) H 01/15/25 07:54
AST 33 U/L (17-59) 01/15/25 07:54
ALT 42 U/L (0-50) 01/15/25 07:54
Alkaline Phosphatase 54 U/L (38-126) 01/15/25 07:54
Lipase 167 U/L (23-300) 01/15/25 07:54
Diagnostic Image Results:
05/2024- EGD [facility] - Moderate Schatzki ring. Dilated to 18 mm - Small hiatal hernia. - Normal examined duodenum. - No specimens collected.
04/2019- colonoscopy - diverticulosis
01/15/25 CT Chest/abd/pelvis Angio W/wo
1. Aneurysm of the ascending thoracic aorta, measured at 4.9 cm in greatest orthogonal dimension on the current study. No significant change compared to most recent prior study, nor to prior study dated 01/29/2023.
2. No evidence of aortic dissection or central pulmonary embolism. No significant coronary arterial calcification.
3. Moderate prostatic enlargement.
Assessment / Plan
-
Pt is an 80yo with hx ascending aortic aneurysm, BPH, hyperlipidemia, diverticulosis, HH, GERD, colon polyps, schatzki's ring, dysphagia, ramsey's esophagus, right BBB, BPH, HTN, hyperlipidemia, mild to moderate AI with chronic intermittent left
sided pain. He admits to similar pain with follow with Dr. Peñaloza in past, but now noted with worsening pain. He admits to waking up with not feeling well. Pain was dull but 7-8/10. He then was noted with syncope prior to admission and BP 98/58
with diaphoresis and diarrhea prior to admission. On admission CTA completed with hx aneurysm with no change. He admits pain is worse with bending and fasting and improved with eating. he denies any GI complaints with odynophagia, dysphagia,
GERD, nausea, vomiting, constipation blood or black in stools. He denies any recent travel, abx, or sick contacts. No NSAID or anticoagulation use. Labs on admission noted with WBC 12,500
05/2024- EGD [facility] - Moderate Schatzki ring. Dilated to 18 mm - Small hiatal hernia. - Normal examined duodenum. - No specimens collected.
04/2019- colonoscopy - diverticulosis
01/15/25 CT Chest/abd/pelvis Angio W/wo
1. Aneurysm of the ascending thoracic aorta, measured at 4.9 cm in greatest orthogonal dimension on the current study. No significant change compared to most recent prior study, nor to prior study dated 01/29/2023.
2. No evidence of aortic dissection or central pulmonary embolism. No significant coronary arterial calcification.
3. Moderate prostatic enlargement.
-LUQ pain with pain in back
-leukocytosis
-hypotension with syncope prior to admission
-shortness of breath with exertion
-ascending aortic aneurysm with neg CTA on admission
other medication problems:
, BPH, hyperlipidemia, diverticulosis, HH, GERD, colon polyps, schatzki's ring, dysphagia, ramsey's esophagus, right BBB, BPH, HTN, hyperlipidemia, mild to moderate AI
PLAN:
Etiology of LUQ pain with diarrhea related to infectious etiology with leukocytosis, ischemic colitis with diarrhea but no bleeding noted vs other
CTA neg for change with known aneurysm
trend labs
maintain adequate perfusion
mild bili elevation on admission with some elevation in past repeat in am with D isis
if not improving consider repeat CT with oral contrast
monitor stools and hbg
if increased diarrhea check stool studies
-
-
Thank you for consultation and allowing me to participate in the patient's care. Please call the electronic game developer GI physician during the after hours with any questions or concerns.
[2025-01-15] MEDS: LOVENOX 40 MG SC (17:02)
[2025-01-15] MEDS: NSS 1000 IV (17:02)
[2025-01-15 23:29] LABS: Troponin I 0.016 ng/ml
[2025-01-16 03:08] VITALS: BP 108/56
[2025-01-16 06:00] VITALS: BMI 31.6
--- NOTE | 2025-01-16 06:10 | W.PN.GI.CBS2 ---
Today's Communication / Plan
-
Ongoing improvement of symptoms with resolution of previous LUQ abd pain and looser stools, suspect likely foodborne illness. Continue diet as tolerated along with supportive care. Recommend outpatient GI f/u after discharge. Rest of care as below.
GI will sign-off, please recontact with any questions or concerns.
Assessment / Plan
-
Mr. Hicks is a 80-year-old male with history of high cholesterol, ascending aortic aneurysm which is being monitored, history of GERD/Miles's esophagus presenting with complaints of lower abdominal discomfort that woke him up from sleep around 4
AM, he had a large bowel movement following that and his pain did feel better but around 6 AM, he felt dizzy and passed out, he did have loose stool as well. Last night, he did have dinner at his hcembmcm-no-gsn's house and nobody else got sick.
Currently the lower abdominal pain completely resolved but he does report discomfort in the left upper quadrant which seems to have been chronic for several years. He also reports some rib cage pain. Some nausea but no vomiting during the episode.
No heartburn, he takes omeprazole sporadically, history of intestinal metaplasia/Miles's esophagus, had an upper endoscopy with dilation of the Schatzki's ring earlier this year for dysphagia and symptoms resolved. Normal bowel movement pattern
is 1 formed stool a day without any pushing or straining, usually good evacuation. No blood in the stool or black stool. No regular NSAID use.
In the emergency room, CBC showed mild leukocytosis, CMP showed total bilirubin of 2.3 with a direct of 0.3, other LFTs in normal range, lipase in normal range. Previous history of elevated total bilirubin as well since 2012.
CT angiogram done today showed aneurysm of ascending thoracic aorta about 4.9 cm without any significant change from previous study, moderate prostate enlargement but no evidence of PE and otherwise normal study.
05/2024- EGD [facility] - Moderate Schatzki ring. Dilated to 18 mm - Small hiatal hernia. - Normal examined duodenum. - No specimens collected.
04/2019- colonoscopy - diverticulosis
01/15/25 CT Chest/abd/pelvis Angio W/wo
1. Aneurysm of the ascending thoracic aorta, measured at 4.9 cm in greatest orthogonal dimension on the current study. No significant change compared to most recent prior study, nor to prior study dated 01/29/2023.
2. No evidence of aortic dissection or central pulmonary embolism. No significant coronary arterial calcification.
3. Moderate prostatic enlargement.
#LUQ pain with pain in back
#Leukocytosis
#Hypotension with syncope prior to admission
#Shortness of breath with exertion
Impression: Lower abdominal pain which resolved after bowel movements and now left upper quadrant discomfort which she has had in the past as well. Cannot rule out foodborne gastroenteritis versus foodborne illness, otherwise CT without any evidence
of diverticulitis/colitis. Gallbladder and pancreas unremarkable. Left upper quadrant pain which is chronic, cannot rule out musculoskeletal etiology given chronic intermittent nature. Upper endoscopy in 2024 with Schatzki's ring, colonoscopy was
in 2019. No urgent indication for endoscopy evaluation. If any further episodes of diarrhea, will check stool studies at that time but otherwise would monitor.
Recommendations:
- Continue low-residue/low-fiber diet
- Suspect his previous diarrhea/LUQ abd pain likely related to foodborne illness and/or viral gastroenteritis with resolution of his previous symptoms
- Would defer checking stool studies given resolution of diarrhea
- Still with chronic lower abd pain/back pain, and suspect possibly may be MSK-related and long-standing issue
- Slight drop in Hgb, however likely dilutional given decrease in all cell lines
- No plans for any endoscopic evaluation at this time
-Elevated total bilirubin, majority of it is indirect, likely related to Gilbert's
- Continue pain control and anti-emetics PRN
- Recommend outpatient f/u with his primary GI, Dr. Randall, in the next several weeks
- Rest of supportive care as per primary team
Discussed with internal medicine team. GI will sign-off, please recontact with any questions or concerns.
Subjective
Subjective
Date of Service: January 16, 2025
- No acute events overnight
Feeling better with resolution of his previous symptoms although still with occasional left sided discomfort however this has been chronic. Denies any further diarrhea or bloody/dark stools. Tolerating diet without any difficulty and denies any
nausea/vomiting.
Objective
Data Reviewed
Laboratory Data:
Laboratory Results
Total Bilirubin 2.3 mg/dl (0.2-1.3) H 01/15/25 07:54
AST 33 U/L (17-59) 01/15/25 07:54
ALT 42 U/L (0-50) 01/15/25 07:54
Alkaline Phosphatase 54 U/L (38-126) 01/15/25 07:54
Lipase 167 U/L (23-300) 01/15/25 07:54
Vital Signs and I&O:
Vital Signs
Temp Pulse Resp BP Pulse Ox
97.6 F 53 18 108/56 94
01/16/25 03:08 01/16/25 03:08 01/16/25 03:08 01/16/25 03:08 01/16/25 03:08
Physical Exam
Physical Exam
HEENT: Anicteric and Moist mucous membranes
Pulmonary: Other (Normal WOB on room air)
GI: Soft, Non Distended and Non Tender
Extremities: Warm
Neuro: Non Focal
[2025-01-16] MEDS: NSS 1000 IV (06:39)
[2025-01-16 07:04] LABS: Hematocrit 38.0 % (39.0-52.0); Hemoglobin 12.5 g/dL (13.0-18.0); Mean Corp Hgb Conc. 32.9 g/dL (33.0-37.0); Mean Corpuscular Volume 94.1 fL (80.0-94.0); Platelet Count 127 10^3/uL (130-400); Red Cell Dist. Width 13.5 % (11.5-14.5)
[2025-01-16 07:19] LABS: ALT (SGPT) 28 U/L (0-50); AST (SGOT) 21 U/L (17-59); Albumin 3.5 g/dl (3.5-5.0); Alkaline Phosphatase 38 U/L (38-126); Blood Urea Nitrogen 24 mg/dl (9-20); Calcium 8.0 mg/dl (8.4-10.2); Carbon Dioxide 24 mmol/L (22-30); Chloride 107 mmol/L (98-107); Estimated Creatinine Clearance 79 ml/min; Glucose 96 mg/dl (70-99); Potassium 4.1 mmol/L (3.5-5.1); Sodium 133 mmol/L (135-145); Total Protein 5.8 g/dl (6.3-8.2); eGFR > 60.00
[2025-01-16 07:37] LABS: INR 1.26; PT 16.1 Sec (11.4-14.6)
[2025-01-16 07:39] VITALS: BP 115/59
[2025-01-16] MEDS: PROSCAR 5 MG PO (08:24)
[2025-01-16 09:07] VITALS: BP 123/66; BP 134/61; PULSE 52; O2SAT 98
--- NOTE | 2025-01-16 09:22 | CM ---
Patient seen at bedside on . PT/OT assessment in process and patient doing well. Patient given OBS/DAY form and completed form, signed form placed on chart. Patient requested CM not ayaka to patient family as they were going to appointments. CM
will continue to follow for discharge planning needs.
Plan; home with no needs anticipated at this time
--- NOTE | 2025-01-16 11:12 | W.PN.HOSP.TC ---
Today's Communication/Plan
-
advance diet to LRD and monitor response
if tolerates, then can dc with OP f/u with Ortho for evaluation of possible MSK related pain
Assessment / Plan
Assessment / Plan
Assessment:
Left upper quadrant, acute on chronic abd pain
- patient reports chronic abd pain, worsened last evening
- s/p BM and some loose stool; no blood
- labs unremarkable
- CT without acute pathology
- GI consulted; no indication for inpatient scopes
- tolerated clears; advance to LRD. If tolerates, can likely dc home
- patient planning to see Ortho/pain specialist in case of MSK pathology although no osseous abnormalities on CT.
Presyncope/lightheadedness likely vagal in setting of pain
chronic SOB with exertion at home
- monitor on tele; no events
- trops x 2 negative
- cleared PT/OT
- prior stress test 06/2024 with small, mild, fixed apical perfusion defect, normal systolic function. EF 65%
- Echo unchanged, no changes from prior Echo 06/06 with normal EF, aortic sclerosis
ascending (thoracic) aortic aneurysm
- stable on CT comparison from prior
- OP surveillance with cardiothoracic surgery office
BPH
- continue Dutasteride
Hx of hiatal hernia
DVT ppx: Lovenox
Code: Full
Anticipated Discharge: Within 24 hours
Subjective/Interval History
-
Date of Service: January 16, 2025
L sided pain improving; now back to chronic level
tolerating clears; requesting higher diet
no n/v
Objective Data
-
Labs:
Laboratory Results
01/16/25
06:43
WBC 8.8
Hgb 12.5 L
Hct 38.0 L
Plt Count 127 L
PT 16.1 H
INR 1.26
Sodium 133 L
Potassium 4.1
Chloride 107
Carbon Dioxide 24
BUN 24 H
Creatinine 0.9
Glucose 96
Calcium 8.0 L
Total Bilirubin 2.5 H
AST 21
ALT 28
Alkaline Phosphatase 38
Vital Signs:
Vital Signs
Temp Pulse Resp BP Pulse Ox
97.9 F 50 12 115/59 98
01/16/25 07:39 01/16/25 07:39 01/16/25 07:39 01/16/25 07:39 01/16/25 07:39
I&O
01/15/25 01/16/25 01/17/25
06:59 06:59 06:59
Output Total 600 / 600
Balance -600 / -600
Physical Exam
-
General: No Apparent Distress
HEENT: Normocephalic and Atraumatic
Respiratory: Negative Wheezes
Cardiac: Regular Rhythm and S1/S2
GI: Nondistended and Other (left sided abd tenderness, mild, no ridigity)
Genito-urinary: No Costovertebral Tender
Neuro: AO x 3
Psych: Calm
Data Reviewed
-
Total Time Spent with Patient (in minutes): 42
Labs: Labs Reviewed by me
[2025-01-16 11:20] VITALS: BP 137/58
[2025-01-16 11:33] VITALS: BP 133/73; BP 137/58; BP 138/72; PULSE 50; PULSE 53
[2025-01-16 14:58] VITALS: BP 118/64
[2025-01-16] MEDS: LOVENOX SC (16:33)
--- NOTE | 2025-01-16 16:43 | W.DCSUMMARY ---
Discharge Summary
Discharge Data
Date of Admission: 01/15/25
Date of Discharge: 01/16/25
-
Pending Results: No
Hospital Course
80 y/o M with hx of ascending aortic aneurysm, BPH, hyperlipidemia, diverticulosis, hiatal hernia presented to ER with LUQ and LLQ pain - acute on chronic. CT and labs were unremarkable. GI evaluated, and felt it could be viral or foodborne illness.
Patients symptoms improved with symptomatic control and he was able to advance to low residue diet. GI did not feel an EGD or Colonoscopy is warranted. Patient will follow up with GI outpatient.
Discharge Plan
-
Patient Disposition: Home (Routine Discharge)
Discharge Diagnosis/Procedures: acute Left sided abdominal pain - likely foodborne or viral per GI team. Chronic L sided abdomen, back pain suspected to be musculoskeletal in origin
Condition: Fair
Diet: Low Residue
Activity: As tolerated
Bathing Restrictions: None
Referrals:
Chaitanya Brito MD [Family Provider, Family Practice] - in one week
Asael Randall MD [Active, Gastroenterology] - in four to six weeks
Kei Patino DO [Non-Admitting Privileges, Orthopedics] - in one to two weeks
Referral Note: to discuss back pain
Prescriptions:
Continued
calcium carbonate [Tums] 200 mg calcium (500 mg) Tablet,Chewable
400 mg PO HS
vitamin B complex Tablet
1 tab PO DAILY
vitamin E 268 mg (400 unit) Capsule
268 mg PO DAILY
dutasteride 0.5 mg Capsule
0.5 mg PO DAILY
rosuvastatin [Crestor] 10 mg Tablet
10 mg PO DAILY
Visbiome 112.5 billion cell Capsule
1 cap PO DAILY
psyllium Packet
1 packet PO DAILY
Discharge Orders:
Discharge Patient (As Directed); Ordered 01/16/25
Ordered By: Franklin Manuel
Discharge Date and Time
Print Language: BENINESE
== END 2025-01-16 17:22 | disposition home or self-care (01) ==
LOC: 4 WEST ACU 14:11
PROVIDERS: Nurse Practitioner Adult Health; ADMITTING PHYSICIAN Internal Medicine; EMERGENCY PHYSICIAN Emergency Medicine; FAMILY PHYSICIAN Family Medicine; OTHER PHYSICIAN Internal Medicine Gastroenterology
DX: R10.9 Unspecified abdominal pain (principal); R19.7 Diarrhea, unspecified; R55 Syncope and collapse; R42 Dizziness and giddiness; R11.0 Nausea; I71.21 Aneurysm of the ascending aorta, without rupture; N40.0 Benign prostatic hyperplasia without lower urinary tract symptoms; E78.00 Pure hypercholesterolemia, unspecified; K44.9 Diaphragmatic hernia without obstruction or gangrene; I95.9 Hypotension, unspecified; I44.0 Atrioventricular block, first degree; I45.2 Bifascicular block; I37.1 Nonrheumatic pulmonary valve insufficiency; I35.1 Nonrheumatic aortic (valve) insufficiency; I35.8 Other nonrheumatic aortic valve disorders; I10 Essential (primary) hypertension; G89.29 Other chronic pain; K21.9 Gastro-esophageal reflux disease without esophagitis; K22.70 Barrett's esophagus without dysplasia; K22.2 Esophageal obstruction; D72.829 Elevated white blood cell count, unspecified; M54.9 Dorsalgia, unspecified; Z87.19 Personal history of other diseases of the digestive system; Z86.0100 Personal history of colon polyps, unspecified; Z87.891 Personal history of nicotine dependence; Z79.899 Other long term (current) drug therapy
CPT/HCPCS: 71275; 72125; 74174; 80053; 81003; 81015; 82248; 83690; 84484; 85025; 85027; 85610; 86850; 86900; 86901; 87040; 93005; 93306; 96361; 96374; 96375; 97162; 97166; 99285; G0378; Q9967